=== PATIENT | female | born 2000 | race Caucasian/White ===

== ENCOUNTER 2022-11-13 14:46 | Emergency (ER) | payer OTHER ==
[~2022-11-13] VITALS: Ht 160 cm; Wt 63.6 kg
[2022-11-13 15:07] VITALS: TEMP 98
[2022-11-13 18:21] VITALS: BP 138/93; PULSE 98
== END 2022-11-13 18:22 | disposition home or self-care (01) ==
LOC: COL.ER 14:46
DX: R11.2 Nausea with vomiting, unspecified (principal); Z28.310 Unvaccinated for COVID-19
CPT/HCPCS: J2405; J7030